=== PATIENT | male | born 1980 | race American Indian/Alaskan Native ===

== ENCOUNTER 2017-09-03 14:52 | Outpatient (CLI) | payer BC ==
[2017-09-03 15:37] LABS: Alanine Aminotransferase 13 units/L (7-56); Albumin 3.6 g/dL (3.9-5); BUN/Creatinine Ratio 11; Blood Urea Nitrogen 16 mg/dL (9-20); Calcium 9.3 mg/dL (8.4-10.2); Hemolysis Index 20
[2017-09-03 17:26] LABS: Chol/HDL Ratio 7.37 %; HDL Cholesterol 32 mg/dL (40-59); LDL Cholesterol,Direct TNR mg/dL (50-130)
== END 2017-09-03 14:53 | disposition home or self-care (01) ==
LOC: LAB 14:52
PROVIDERS: ATTEND Internal Medicine
DX: E11.65 Type 2 diabetes mellitus with hyperglycemia (principal); I10 Essential (primary) hypertension; F17.200 Nicotine dependence, unspecified, uncomplicated
CPT/HCPCS: 36415; 80053; 80061; 83036

== ENCOUNTER 2017-10-14 12:20 | Day surgery (SDC) | payer BC ==
[~2017-10-14 12:20] MED LIST: ANCEF/STERILE WATER 2 GM/20 ML 2 GM/20 ML SYRINGE IV NR; NACL P/F VIAL (10 ML) 10 ML ONE
[2017-10-14] MEDS ORDERED: NACL BACTERIOSTATIC INFILTRATI ONE (13:15)
--- NOTE | 2017-10-14 13:37 | Anesthesia Consultation ---
Anesthesia Consult and Med Hx Date of service: 10/14/17 - Airway Anesthetic Teeth Evaluation: Good ROM Head & Neck: Adequate Mental/Hyoid Distance: Adequate Mallampati Class: Class II Intubation Access Assessment: Probably Good - Pulmonary Exam CTA: Yes - Cardiac Exam Cardiac Exam: RRR - Pre-Operative Health Status ASA Pre-Surgery Classification: ASA3 Proposed Anesthetic Plan: General - Pulmonary Hx Smoking: Yes (STOPPED 07/24/2017 , 08/27 PPD) Hx Sleep Apnea: Yes (DX SLEEP APNEA WITH CPAP USE.) - Cardiovascular System Hx Hypertension: Yes (X 2 YRS) - Endocrine Hx Insulin Dependent Diabetes: Yes - Other Systems Hx Cancer: No Hx Obesity: Yes
--- NOTE | 2017-10-14 13:37 | Anesthesia Day of Surgery ---
Anesthesia Day of Surgery - Day of Surgery Patient Examined: Yes Patient H&P Reviewed: Yes Patient is NPO: Yes Beta Blockers: Yes
[2017-10-14] MEDS ORDERED: NACL 0.9% 1000 ML 1,000 ML IV SCH (14:00)
[2017-10-14] MEDS ORDERED: VERSED IV NR (14:00)
[2017-10-14] MEDS ORDERED: PEPCID PO NR (14:00)
[2017-10-14] MEDS ORDERED: ANTIBIOTIC OINT TP ONE (14:47)
[2017-10-14] MEDS ORDERED: MARCAINE 0.25% INFILTRATI ONE ×2 (14:47→16:29)
[2017-10-14] MEDS ORDERED: COREG PO ONE (15:00)
[2017-10-14] MEDS ORDERED: DILAUDID ONE (15:07)
[2017-10-14] MEDS ORDERED: XYLOCAINE MPF 2% ONE (15:07)
[2017-10-14] MEDS ORDERED: DIPRIVAN 10 MG/ML IV ONE (15:07)
--- NOTE | 2017-10-14 15:34 | Post Operative Note ---
Date of procedure: 10/14/17 Pre-op diagnosis: severe phimosis Post-op diagnosis: same Findings: cracked and edemtous foreskin Procedure: circ Anesthesia: GETA Surgeon: SLIM ORELLANA Estimated blood loss: minimal Pathology: list (foreskin) Specimen disposition: to lab Disposition: PACU
--- NOTE | 2017-10-14 15:37 | Discharge Summary ---
Short Stay Discharge Plan Activity: other (no sex ) Weight Bearing Status: Full Weight Bearing Diet: low fat, diabetic Wound: open to air (remove dressing after 9pm) Durable Medical Equipment Needed Upon Discharge: other (ice to penis ) Follow up with: GREGORY CARSON MD [Primary Care Provider] - 7 Days SLIM ORELLANA MD [Staff Physician] - 7 Days
[2017-10-14] MEDS ORDERED: TRIPLE ANTIBIOTIC TP ONE (16:29)
[2017-10-14] MEDS ORDERED: NACL 0.9% IR ONE (16:29)
[2017-10-14] MEDS ORDERED: ZOFRAN IV PRN (16:31)
[2017-10-14] MEDS ORDERED: NACL 0.9% 1000 ML 1,000 ML ONE (16:33)
[2017-10-14] MEDS ORDERED: DECADRON ONE (16:33)
[2017-10-14] MEDS ORDERED: NEO SYNEPHRINE/NS Syringe(OR USE) IV ONE (16:56)
[2017-10-14] MEDS: DILAUDID IV PRN ×2 (17:35→17:45)
[2017-10-14 18:38] VITALS: BP 126/75
--- NOTE | 2017-10-14 18:41 | Operative Report ---
PREOPERATIVE DIAGNOSES: Severe phimosis, recent diabetes. POSTOPERATIVE DIAGNOSES: Severe phimosis, recent diabetes with cracking and bleeding of the skin. PROCEDURE PERFORMED: Circumcision, combination of sleeve and slit technique. SURGEON: Rayshawn Barraza MD ANESTHESIA: General. FINDINGS: This is a gentleman with the inability to retract foreskin with intermittent bleeding of the skin, very thickened distal skin. He now presents for circumcision. DESCRIPTION OF PROCEDURE: The patient was brought to the operating room and placed on the operating table. Following induction of anesthesia, prepped and draped in the usual sterile fashion. We could not retract the skin. At this point, the penile incision was marked out and made with the 15 blade knife. A dorsal slit was carried out to the exposed glans, which was treated with Betadine. A circumferential inner incision was made, and these were connected dorsally. A large amount of excess skin, which was quite thickened, was excised. Small bleeders were cauterized or tied with 3-0 Vicryl. The patient tolerated the procedure well. Sutures were placed at 12, 3, 6, and 9 o'clock position and each quadrant was bisected. There were no complications, brought to the Recovery Room after the circumferential incision was sutured with interrupted 3-0 chromic in stable condition. A loose pressure dressing was placed, which will be removed tonight. JOB# [id number] FLOWER/MARCO
== END 2017-10-14 19:25 | disposition home or self-care (01) ==
LOC: OR 12:20
PROVIDERS: ATTEND Urology
DX: N47.1 Phimosis (principal); I10 Essential (primary) hypertension; E11.9 Type 2 diabetes mellitus without complications; E66.9 Obesity, unspecified; G47.30 Sleep apnea, unspecified; Z79.899 Other long term (current) drug therapy; Z79.4 Long term (current) use of insulin; Z87.891 Personal history of nicotine dependence; Z99.89 Dependence on other enabling machines and devices; Z88.8 Allergy status to other drugs, medicaments and biological substances; Z68.42 Body mass index [BMI] 45.0-49.9, adult
CPT/HCPCS: 36415; 54150; 82962; 84132; 88304; J0690; J1100; J1170; J2250; J2370; J2405; J2704; J7030; A6250; J1815